=== PATIENT | male | born 1990 | race African-American/Black ===

== ENCOUNTER 2018-11-11 04:13 | Emergency (ER) | payer SELFPAY ==
[~2018-11-11] VITALS: Ht 185.4 cm; Wt 79.4 kg
== END 2018-11-11 04:30 | disposition left against medical advice (07) ==
LOC: ER 04:13
DX: R11.2 Nausea with vomiting, unspecified (principal); R07.89 Other chest pain; F41.9 Anxiety disorder, unspecified; R00.1 Bradycardia, unspecified; F17.200 Nicotine dependence, unspecified, uncomplicated; F12.10 Cannabis abuse, uncomplicated
CPT/HCPCS: 93005